=== PATIENT | male | born 1960 | race Caucasian/White ===

== ENCOUNTER 2016-10-28 23:39 | Emergency (ER) | payer MEDICAID ==
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
[2016-10-29 00:04] VITALS: RESP 14; TEMP 99.3
[2016-10-29] MEDS ORDERED: CHLORDIAZEPOXIDE 25MG PREPK#6 BTL TAKEHOME ONE (00:19)
[2016-10-29 00:35] VITALS: BP 103/68; PULSE 95; O2SAT 96
== END 2016-10-29 00:35 | disposition home or self-care (01) ==
LOC: EDUNIT#
DX: S62.651A Nondisplaced fracture of middle phalanx of left index finger, initial encounter for closed fracture (principal); S63.611A Unspecified sprain of left index finger, initial encounter; S62.025 Nondisplaced fracture of middle third of navicular [scaphoid] bone of left wrist; W22.8XXA Striking against or struck by other objects, initial encounter; Y93.89 Activity, other specified
CPT/HCPCS: L3925